=== PATIENT | female | born 1995 ===

== ENCOUNTER 2018-05-23 17:27 | Emergency (ER) | payer OTHER, MEDICAID ==
[2017-11-06 07:25] VITALS: BMI 28.0
[2018-05-23] MEDS ORDERED: Betamethasone Soluspan 30 mg/5mL Inj Susp IM ONE (18:54)
--- NOTE | 2018-05-23 19:41 | OBHP ---
Datetime: 05/23/2018 18:55 IP Adm Impression: , intrauterine IP Chief Complaint Other: Betamethasone IP Admit Plan: Discharge home Admit Comment, IP Provider: 23 yo 36.4 wk with pmh of C1Q1 nephropathy with circlage placed on 16wk sent by Dr. Salas after 24h urine prot test to recieve a betamethasone injection for possible induction on Wednesday by Dr Domingo. Otherwise pt have no complain, denies vag bleed/discharge/water gush or contraction. 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 Salas after 24h urine prot test to recieve a betamethasone injection. Betamethasone 12mg IM next IM on 05/24/18 at 19:00 Continue Lovenox and Aspirin Discharge home Discussed with Dr Joce Barajas PGY1 Addendum by Dr. Hobson: I have evalauted the patient independently and I agree with the above Pelvic Type - PN: Not Done Extremities - PN: Normal Abdomen - PN: Normal Back - PN: Normal Breast - PN: Not Done Lungs - PN: Normal Heart - PN: Normal Thyroid - PN: Normal Neurologic - PN: Normal HEENT - PN: Normal General - PN: Normal FHR - Baseline A Provider: 140 Comments, ACOG Physical Exam: No acute distress Heart s1/s2 no extr heart sound lung clear abd nontender, BS+ Extremites b/l edema of lower extremities Gestation - Est Wks by US: 36.4 EGA AdmitDate IP: 36.4 Vital Signs Provider: Reviewed; Within Normal Limits IP Chief Complaint: Other Genitourinary Exam: Normal DTRs - PN: Normal
--- NOTE | 2018-05-23 19:50 | OBDCSUM ---
Datetime: 05/23/2018 19:32 Discharged to, Provider: Home Follow up at, Provider: Dr. Jose L Marshall Instr Diet: Regular Discharge Time: 05/23/2018 19:32 Follow up in weeks, Provider: call Dr. Domingo's office yeimi 05/24/18 in am as per Dr. Hobson Disch Referrals: None Disch Activity Restrictions: No lifting
[2018-05-23 23:47] VITALS: BP 118/67; PULSE 81; RESP 17; TEMP 98.4; O2SAT 100
== END 2018-05-23 19:35 | disposition home or self-care (01) ==
LOC: H.EROB2 17:27
DX: O26.831 Pregnancy related renal disease, first trimester (principal); Z23 Encounter for immunization; Z3A.36 36 weeks gestation of pregnancy
CPT/HCPCS: 96372; 99281; J0702

== ENCOUNTER 2018-05-24 19:20 | Emergency (ER) | payer OTHER, MEDICAID ==
[2018-05-24 19:29] VITALS: BMI 33.4
[2018-05-24] MEDS ORDERED: Betamethasone Soluspan 30 mg/5mL Inj Susp IM ONE (19:29)
[2018-05-25 03:16] VITALS: BP 126/72; PULSE 91
--- NOTE | 2018-05-25 07:54 | OBHP ---
Datetime: 05/24/2018 19:30 IP Adm Impression: , intrauterine ; Intact Membranes IP Chief Complaint Other: Betamethasone shot IP Admit Plan: Discharge home Admit Comment, IP Provider: 23 yo 36.5 wk with pmh of C1Q1 nephropathy with circlage placed on 16wk presented today to recieve her sec dose of Betamethasone shot. Pt was seen by Dr. Salas and a fter 24h urine prot test he recommended starting betamethasone treatment to induce delivery by [facility] by Dr. Domingo. Pt also state that she habe been this headache that is not alleviated by Tylenol, its come and goes, located in frontal area, and light exacerbates it. She denies any confusion, ting ling sensation, weakness, change in vision or any other symptoms. Otherwise pt have no complain, denies vag bleed/discharge/water gush or contraction. Pt was advised to Continue Lovenex yesterday, Pt spoke with Dr Salas today and advised to D/C m edication for now. 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 With PGY1, I saw this patient. She came for second dose of steroids. She is scheduled for appt this wednesday with Dr Domingo. chart rev'd Urine protein 988mg/24h... she has no MENDOZA; no vvisual dist; no CTX; no SROM; no VB. called Dr Domingo...pt to be scheduled for a ppt on morning cerclage removal/NST/possible IOL MAHNDO Pelvic Type - PN: Not Done Extremities - PN: Normal Abdomen - PN: Normal Back - PN: Not Done Breast - PN: Not Done Lungs - PN: Normal Heart - PN: Normal Thyroid - PN: Normal Neurologic - PN: Normal HEENT - PN: Normal General - PN: Normal FHR - Baseline A Provider: 145 Comments, ACOG Physical Exam: Pt is not in acute distress Hear s1/s2 heard no extra heart sound lung clear abd non tender bs+ Mild b/l lower ext edema noted Gestation - Est Wks by US: 36.5 IP Hx Assessment: The History has been Reviewed and is Current EGA AdmitDate IP: 36.5 Vital Signs Provider: Reviewed; Within Normal Limits IP Chief Complaint: Other NICHD Variability Prov Fetus A: Moderate 6-25bpm NICHD Accel Fetus A IP Provider: 15X15 FHR Category Provider Fetus A: Category I Genitourinary Exam: Normal DTRs - PN: Normal
--- NOTE | 2018-05-25 07:56 | OBDCSUM ---
Datetime: 05/24/2018 20:40 Discharged to, Provider: Home Follow up at, Provider: [facility] Disch Instr Activity: Normal activity Disch Instr Diet: Regular Discharge Time: 05/24/2018 20:40 Follow up in weeks, Provider: Wednesday05/26/2018 Disch Referrals: None Disch Activity Restrictions: No lifting; No sexual activity; Nothing in vagina - [place], tampon s, douche Discharge Diagnosis Prov Other: 36w; proteinuria
== END 2018-05-24 20:45 | disposition home or self-care (01) ==
LOC: H.EROB2 19:20
DX: O26.873 Cervical shortening, third trimester (principal); O26.833 Pregnancy related renal disease, third trimester; Z23 Encounter for immunization; Z3A.36 36 weeks gestation of pregnancy
CPT/HCPCS: 99281; J0702

== ENCOUNTER 2018-05-26 07:31 | Inpatient (IN) | payer OTHER, MEDICAID ==
[2018-05-26] MEDS ORDERED: Oxytocin 30 UNIT 30 UNITS/500 ML BAG IV ONE (07:56)
[2018-05-26] MEDS ORDERED: Lactated Ringer's 1,000 ML IV ONE (07:56)
[2018-05-26] MEDS ORDERED: Lactated Ringer's 1,000 ML IV SCH (08:00)
[2018-05-26 09:06] LABS: BASO % 0.1 % (0.0-2.0); EOS % 0.1 % (0.0-4.0); HEMOGLOBIN 11.7 g/dL (12.0-16.0); LYMPH # 1.6 K/uL (1.0-4.3); LYMPH % 9.1 % (20.0-40.0); MEAN CELL VOLUME 90.7 fl (81.0-99.0); MEAN CORPUSCULAR HEMOGLOBIN 30.4 pg (27.0-31.0); MEAN CORPUSCULAR HGB CONC 33.5 g/dL (33.0-37.0); MEAN PLATELET VOLUME 8.1 fl (7.2-11.7); MONO # 1.5 K/uL (0.0-0.8); MONO % 8.4 % (0.0-10.0); NEUT # 14.4 K/uL (1.8-7.0); NEUT % 82.3 % (50.0-75.0); PLATELET COUNT 276 K/uL (130-400); RBC 3.84 Mil/uL (3.80-5.20); RED CELL DISTRIBUTION WIDTH 15.1 % (11.5-14.5); WHITE BLOOD COUNT 17.5 K/uL (4.8-10.8)
[2018-05-26 10:50] LABS: BANDS 1 % (0-2); LYMPHOCYTE 8 % (20-50); METAMYELOCYTE 1 % (0-0); MONOCYTE 10 % (0-10); MYELOCYTE 1 % (0-0); NEUTROPHIL 78 % (42-75); REACTIVE LYMPHOCYTES 1 % (0-0); TOTAL CELLS COUNTED 100
[2018-05-26 10:51] LABS: ANISOCYTOSIS SLIGHT; PLATELET ESTIMATE NORMAL (NORMAL)
[2018-05-26 10:52] LABS: HYPOCHROMIC SLIGHT
--- NOTE | 2018-05-27 10:05 | OBPN ---
Datetime: 05/26/2018 08:36 IP Progress Impression Other: Induction for kidney dz IP Procedures: Sterile Vag Exam IP Progress Plan: Cervical Ripening Membranes, Provider: Intact Contraction Comments Provider: irregular FHR - Baseline A Provider: 120's IP Progress Note Comment: 23 yo [id number] at 37+1 wks for induction of labor for renal disease S/p cerclage removal and cervidil Will start oral misoprostol 50 mcg q 4 for maximum of 6 doses GBS positive, FHT reassuring Vital Signs Provider: Reviewed; Within Normal Limits NICHD Accel Fetus A IP Provider: 15X15 FHR Category Provider Fetus A: Category I NICHD Variability Prov Fetus A: Moderate 6-25bpm Dilatation, Provider: FT Effacement, Provider: 70 Station, Provider: -1 NICHD Decel Fetus A IP Provider: None Datetime: 05/24/2018 19:30 Gestation - Est Wks by US: 36.5
[2018-05-27] MEDS ORDERED: OXYTOCIN/0.9 % NS 20 UNIT/1,000 ML BAG IV SCH (20:15)
[2018-05-27] MEDS ORDERED: Oxytocin 30 UNIT 30 UNITS/500 ML BAG IV ONE (20:15)
[2018-05-27] MEDS ORDERED: Fentanyl/Bupivacaine HCl 250 ML EPI ONE (20:25)
[2018-05-27] MEDS ORDERED: Lidocaine 1% Inj (20ml) ONE (21:22)
[2018-05-27] MEDS ORDERED: Oxycodone/Acetaminophen 5/325 mg Tab PO PRN ×2 (21:55→23:41)
[2018-05-27] MEDS ORDERED: Benzocaine/Menthol SPRAY TOP PRN ×2 (21:55→23:41)
--- NOTE | 2018-05-27 22:06 | OBDS ---
MATERNAL INFORMATION Provider Comments: Pt progressed to complete and pushed to deliver a viable female infant through bl ood- stained fluid at 2116. Nuchal cord was reduced w/ delivery. Apgars 9 and 9. Wt 7#2.8, 3255gms . placed on mother's abdomen w/ process coach present. Cord doubly clamped and FOB cut the co rd. Placenta delivered spontaneously intact w/ a 3vc at 2118. 1% lidocaine injected into vagina and perineum. Second degree tear repaired w/ 0-v and 2-0 rapide. Rectum intact. Pt and baby tolerated the procedure well. EBL 350 mL LABOR SUMMARY EDC: 06/16/2018 00:00 No. Babies in Womb: 1 LABOR INFORMATION Cervical Ripening Agents: Cytotec @ 50
[2018-05-28 07:37] LABS: BASO # 0.1 K/uL (0.0-0.2); BASO % 0.3 % (0.0-2.0); EOS % 0.2 % (0.0-4.0); HEMOGLOBIN 11.5 g/dL (12.0-16.0); LYMPH # 1.8 K/uL (1.0-4.3); LYMPH % 8.9 % (20.0-40.0); MEAN CORPUSCULAR HEMOGLOBIN 30.7 pg (27.0-31.0); MEAN CORPUSCULAR HGB CONC 33.3 g/dL (33.0-37.0); MEAN PLATELET VOLUME 7.8 fl (7.2-11.7); MONO # 1.8 K/uL (0.0-0.8); MONO % 9.1 % (0.0-10.0); NEUT # 16.3 K/uL (1.8-7.0); NEUT % 81.5 % (50.0-75.0); RBC 3.74 Mil/uL (3.80-5.20); RED CELL DISTRIBUTION WIDTH 14.9 % (11.5-14.5)
--- NOTE | 2018-05-29 11:05 | OBDCSUM ---
Datetime: 05/29/2018 08:34 Discharged to, Provider: Home Follow up at, Provider: OB Disch Instr Activity: Normal activity; May be up to bathroom; May be up for meals; May Shower Disch Instr Diet: Regular Discharge Diet restrict Prov: none Discharge Instructions, Provider: Routine instructions given Discharge Diagnosis, Provider: Term Delivered Discharge Time: 05/29/2018 08:34 Follow up in weeks, Provider: 4-6 weeks Disch Referrals: None Contraception discussed, Prov: No Disch Activity Restrictions: Minimize stair-climbing; No sexual activity; Nothing in vagina - Interc ourse, tampons, douche
--- NOTE | 2018-05-29 11:05 | OBPPN ---
Datetime: 05/29/2018 11:02 PP Pain Prov: Within normal limits PP Abdomen/Uterus Prov: Normal PP Lochia Prov: Normal PP Extremities Prov: Normal PP Impression Prov: Normal progression PP Plan Prov: Discharge PP Progress Note Prov: PPD 2 s/p , doing well, breast and bottle feeding Rx motrin given Discharge home today Vital Signs Provider PP: Reviewed
[2018-05-29 18:54] VITALS: BP 118/74; PULSE 75; RESP 20; TEMP 98.1; O2SAT 100
== END 2018-05-29 13:03 | disposition home or self-care (01) | DRG 807 ==
LOC: H.EROB2 07:31 → H.L&D 07:56 → H.OB/GYN 05-28 00:02
PROVIDERS: ADMIT Obstetrics & Gynecology; ATTEND Obstetrics & Gynecology
PROC: 4A1HXCZ Monitoring of Products of Conception, Cardiac Rate, External Approach (ICD-10-PCS; 2018-05-26)
PROC: 10E0XZZ Delivery of Products of Conception, External Approach (ICD-10-PCS; principal; 2018-05-27)
PROC: 0KQM0ZZ Repair Perineum Muscle, Open Approach (ICD-10-PCS; 2018-05-27)
DX: O76 Abnormality in fetal heart rate and rhythm complicating labor and delivery (principal); Z37.0 Single live birth; O99.824 Streptococcus B carrier state complicating childbirth; Z3A.37 37 weeks gestation of pregnancy; O69.81X0 Labor and delivery complicated by cord around neck, without compression, not applicable or unspecified; O70.1 Second degree perineal laceration during delivery